=== PATIENT | male | born 1980 | race Caucasian/White ===

== ENCOUNTER 2018-02-02 15:13 | Emergency (ER) | payer OTHER ==
[~2018-02-02] VITALS: Ht 172.7 cm; Wt 113.4 kg
[2018-02-02 15:25] VITALS: Ht 172.7 cm; Wt 113.4 kg
[2018-02-02 16:58] VITALS: BP 142/75
== END 2018-02-02 16:58 | disposition home or self-care (01) ==
LOC: ED 15:13
DX: S39.012A Strain of muscle, fascia and tendon of lower back, initial encounter (principal); I10 Essential (primary) hypertension; X58.XXXA Exposure to other specified factors, initial encounter; Y93.89 Activity, other specified; Y92.89 Other specified places as the place of occurrence of the external cause; Y99.8 Other external cause status
CPT/HCPCS: J3010